=== PATIENT | male | born 1995 | race Hispanic/Latino ===

== ENCOUNTER 2019-06-04 08:19 | Emergency (ER) | payer SELFPAY ==
--- NOTE | 2019-06-04 08:52 | ER ---
Nurse's Notes [facility] Name: Salas Ledezma Age: 24 yrs Sex: Male : 1995 Arrival Date: 06/04/2019 Time: 08:21 Bed 19 Private MD: Diagnosis: Cough;Bronchitis, not specified as acute or chronic Presentation: 06/04 08:33 Presenting complaint: Sinus congestion, runny nose, productive cough with yellow hb sputum, sore throat, and pain with cough x 11 days. Denies fever/chills/N/V/D. Transition of care: patient was not received from another setting of care. Onset of symptoms was May 24, 2019. Risk Assessment: Do you want to hurt yourself or someone else? Patient reports no desire to harm self or others. Initial Sepsis Screen: Does the patient meet any 2 criteria? No. Patient's initial sepsis screen is negative. Does the patient have a suspected source of infection? No. Patient's initial sepsis screen is negative. Care prior to arrival: None. 08:33 Method Of Arrival: Ambulatory hb 08:33 Acuity: DAMON 4 hb Triage Assessment: 08:35 General: Appears in no apparent distress. Behavior is calm, cooperative. Pain: Pain hb currently is 5 out of 10 on a pain scale. EENT: Reports nasal congestion nasal discharge sore throat. Neuro: Level of Consciousness is awake, alert, obeys commands, Oriented to person, place, time, situation. Cardiovascular: Capillary refill < 3 seconds Patient's skin is warm and dry. Respiratory: Reports cough that is productive, pain with cough Airway is patent Respiratory effort is even, unlabored, Respiratory pattern is regular, symmetrical, Breath sounds are clear bilaterally. GI: No signs and/or symptoms were reported involving the gastrointestinal system. : No signs and/or symptoms were reported regarding the genitourinary system. Derm: Skin is intact, is healthy with good turgor. Musculoskeletal: No signs and/or symptoms reported regarding the musculoskeletal system. Historical: - Allergies: 08:34 No Known Allergies; hb - Home Meds: 08:34 None [Active]; hb - PMHx: 08:34 None; hb - PSHx: 08:34 None; hb - Immunization history:: Adult Immunizations up to date. - Social history:: Smoking status: Patient/guardian denies using tobacco. - Ebola Screening: : No symptoms or risks identified at this time. Screenin:36 Abuse screen: Denies threats or abuse. Denies injuries from another. Nutritional hb screening: No deficits noted. Tuberculosis screening: No symptoms or risk factors identified. Fall Risk None identified. Assessment: 08:36 General: see triage assessment. hb Vital Signs: 08:34 BP 138 / 91; Pulse 52; Resp 16; Temp 97.5; Pulse Ox 100% ; Weight 113.4 kg; Height 5 hb ft. 7 in. (170.18 cm); Pain 5/10; 08:34 Body Mass Index 39.16 (113.40 kg, 170.18 cm) hb ED Course: 08:21 Patient arrived in ED. as 08:24 Herman Espinosa MD is Attending Physician. kdr 08:33 Leanna Nielsen, RN is Primary Nurse. hb 08:34 Triage completed. hb 08:34 Arm band placed on. hb 08:36 Patient has correct armband on for positive identification. Bed in low position. Call hb light in reach. Side rails up X 1. 09:08 No provider procedures requiring assistance completed. Patient did not have IV access hb during this emergency room visit. Administered Medications: 08:57 Drug: Pepcid 20 mg Route: PO; hb 09:07 Follow up: Response: Medication administered at discharge. hb 08:57 Drug: Tessalon Perle 200 mg Route: PO; hb 09:07 Follow up: Response: Medication administered at discharge. hb 08:57 Drug: predniSONE 60 mg Route: PO; hb 09:08 Follow up: Response: Medication administered at discharge. hb Outcome: 08:51 Discharge ordered by . kdr 09:08 Discharged to home ambulatory. hb 09:08 Condition: stable 09:08 Discharge instructions given to patient, Instructed on discharge instructions, follow up and referral plans. medication usage, Demonstrated understanding of instructions, follow-up care, medications, Prescriptions given X 4. 09:09 Patient left the ED. hb Signatures: Herman Espinosa MD MD kdr Kiara Adams as Leanna Nielsen, RN RN hb
--- NOTE | 2019-06-04 08:52 | EDPHYS ---
Physician Documentation [facility] Name: Salas Ledezma Age: 24 yrs Sex: Male : 1995 Arrival Date: 06/04/2019 Time: 08:21 Bed 19 Private MD: ED Physician Herman Espinosa HPI: 06/04 09:46 This 24 yrs old Male presents to ER via Ambulatory with complaints of kdr Bronchitis. 09:46 The patient or guardian reports cough, that is intermittent, described as mild, with kdr productive sputum, that is yellow, difficulty breathing. Onset: The symptoms/episode began/occurred gradually, 11 day(s) ago. Severity of symptoms: At their worst the symptoms were mild, in the emergency department the symptoms are unchanged. Modifying factors: The symptoms are alleviated by nothing, the symptoms are aggravated by exertion, talking. Associated signs and symptoms: The patient has no apparent associated signs or symptoms, Pertinent positives: Pertinent negatives: chest pain, diarrhea, ear ache, fever, nausea, rhinorrhea, sore throat, vomiting. The patient has not experienced similar symptoms in the past. The patient has not recently seen a physician. Historical: - Allergies: 08:34 No Known Allergies; hb - Home Meds: 08:34 None [Active]; hb - PMHx: 08:34 None; hb - PSHx: 08:34 None; hb - Immunization history:: Adult Immunizations up to date. - Social history:: Smoking status: Patient/guardian denies using tobacco. - Ebola Screening: : No symptoms or risks identified at this time. ROS: 09:46 Constitutional: Negative for fever, chills, and weight loss, Eyes: Negative for injury, kdr pain, redness, and discharge, ENT: Negative for injury, pain, and discharge, Neck: Negative for injury, pain, and swelling, Cardiovascular: Negative for chest pain, palpitations, and edema, Abdomen/GI: Negative for abdominal pain, nausea, vomiting, diarrhea, and constipation, Back: Negative for injury and pain, : Negative for injury, bleeding, discharge, and swelling, MS/Extremity: Negative for injury and deformity, Skin: Negative for injury, rash, and discoloration, Neuro: Negative for headache, weakness, numbness, tingling, and seizure activity. Psych: Negative for depression, anxiety, suicide ideation, homicidal ideation, and hallucinations, Allergy/Immunology: Negative for hives, rash, and allergies, Endocrine: Negative for neck swelling, polydipsia, polyuria, polyphagia, and marked weight changes, Hematologic/Lymphatic: Negative for swollen nodes, abnormal bleeding, and unusual bruising. 09:46 Respiratory: Positive for cough, with yellow sputum, Negative for hemoptysis, orthopnea, pleurisy, shortness of breath, wheezing. Exam: 09:46 Constitutional: This is a well developed, well nourished patient who is awake, alert, kdr and in no acute distress. Head/Face: Normocephalic, atraumatic. Eyes: Pupils equal round and reactive to light, extra-ocular motions intact. Lids and lashes normal. Conjunctiva and sclera are non-icteric and not injected. Cornea within normal limits. Periorbital areas with no swelling, redness, or edema. Neck: Trachea midline, no thyromegaly or masses palpated, and no cervical lymphadenopathy. Supple, full range of motion without nuchal rigidity, or vertebral point tenderness. No Meningismus. Chest/axilla: Normal chest wall appearance and motion. Nontender with no deformity. No lesions are appreciated. Cardiovascular: Regular rate and rhythm with a normal S1 and S2. No gallops, murmurs, or rubs. Normal PMI, no JVD. No pulse deficits. Abdomen/GI: Soft, non-tender, with normal bowel sounds. No distension or tympany. No guarding or rebound. No evidence of tenderness throughout. Back: No spinal tenderness. No costovertebral tenderness. Full range of motion. Skin: Warm, dry with normal turgor. Normal color with no rashes, no lesions, and no evidence of cellulitis. MS/ Extremity: Pulses equal, no cyanosis. Neurovascular intact. Full, normal range of motion. Neuro: Awake and alert, GCS 15, oriented to person, place, time, and situation. Cranial nerves II-XII grossly intact. Motor strength 5/5 in all extremities. Sensory grossly intact. Cerebellar exam normal. Normal gait. Psych: Awake, alert, with orientation to person, place and time. Behavior, mood, and affect are within normal limits. 09:46 Respiratory: the patient does not display signs of respiratory distress, Respirations: normal, Breath sounds: rales, that are mild, rhonchi, that are mild, are scattered, are heard diffusely. Vital Signs: 08:34 BP 138 / 91; Pulse 52; Resp 16; Temp 97.5; Pulse Ox 100% ; Weight 113.4 kg; Height 5 hb ft. 7 in. (170.18 cm); Pain 5/10; 08:34 Body Mass Index 39.16 (113.40 kg, 170.18 cm) hb MDM: 08:51 Patient medically screened. kdr 09:46 Data reviewed: vital signs, nurses notes, lab test result(s), radiologic studies. kdr Counseling: I had a detailed discussion with the patient and/or guardian regarding: the historical points, exam findings, and any diagnostic results supporting the discharge/admit diagnosis, lab results, radiology results. Administered Medications: 08:57 Drug: Pepcid 20 mg Route: PO; hb 09:07 Follow up: Response: Medication administered at discharge. hb 08:57 Drug: Tessalon Perle 200 mg Route: PO; hb 09:07 Follow up: Response: Medication administered at discharge. hb 08:57 Drug: predniSONE 60 mg Route: PO; hb 09:08 Follow up: Response: Medication administered at discharge. hb Disposition: 06/04/19 08:51 Discharged to Home. Impression: Cough, Bronchitis, not specified as acute or chronic. - Condition is Stable. - Discharge Instructions: Acute Bronchitis, [id number]. - Prescriptions for Promethazine VC- Codeine 6.25-5-10 mg/5 mL Oral syrup - take 5 milliliters by ORAL route every 4 hours As needed as needed, not to exceed 30 mL in 24 hours - Use only at night or when not working; 200 milliliter. Tessalon Perles 100 mg Oral Capsule - take 1 capsule by ORAL route every 8 hours As needed; 20 capsule. Prednisone 20 mg Oral Tablet - take 2 tablet by ORAL route once daily for 5 days; 10 tablet. Albuterol Sulfate 90 mcg/actuation - inhale 1-2 puff by INHALATION route every 4-6 hours; 1 Inhaler. - Medication Reconciliation Form, Thank You Letter, Work release form form. - Follow up: Private Physician; When: 2 - 3 days; Reason: If symptoms return, Further diagnostic work-up, Recheck today's complaints, Continuance of care, Re-evaluation by your physician. - Problem is new. - Symptoms have improved. Signatures: Herman Espinosa MD MD [facility] Leanna Nielsen RN RN hb Corrections: (The following items were deleted from the chart) 09: 08:51 06/04/2019 08:51 Discharged to Home. Impression: Cough; Bronchitis, not specified hb as acute or chronic. Condition is Stable. Forms are Medication Reconciliation Form, Thank You Letter, Antibiotic Education, Prescription Opioid Use. Follow up: Private Physician; When: 2 - 3 days; Reason: If symptoms return, Further diagnostic work-up, Recheck today's complaints, Continuance of care, Re-evaluation by your physician. Problem is new. Symptoms have improved. kdr
[2019-06-04] MEDS ORDERED: BENZONATATE 100 MG CAP PO ONE (08:55)
[2019-06-04] MEDS ORDERED: predniSONE 20 MG TAB ONE (08:56)
[2019-06-04] MEDS ORDERED: FAMOTIDINE 20 MG TAB ONE (08:56)
[2019-06-04 09:15] VITALS: BP 138/91; TEMP 97.5; O2SAT 100
== END 2019-06-04 09:09 | disposition home or self-care (01) ==
LOC: ER 08:19
DX: J40 Bronchitis, not specified as acute or chronic (principal)
CPT/HCPCS: 99283; J7512